=== PATIENT | male | born 1955 | race Caucasian/White ===

== ENCOUNTER 2019-03-07 10:02 | Emergency (ER) | payer OTHER, BC ==
[2019-03-07] MEDS: KETOROLAC 30 MG INJ IM (12:41)
== END 2019-03-07 13:39 | disposition home or self-care (01) ==
LOC: FTE 10:02
DX: R51 Headache (principal); E11.9 Type 2 diabetes mellitus without complications; Z79.84 Long term (current) use of oral hypoglycemic drugs
CPT/HCPCS: 96372; 99284-25

== ENCOUNTER 2019-04-04 08:35 | Day surgery (SDC) | payer OTHER ==
[2019-04-04] MEDS ORDERED: PROPOFOL 40 ML (10:38)
[2019-04-04] MEDS ORDERED: LIDOCAINE 100 MG SYRINGE (10:38)
== END 2019-04-04 13:58 | disposition home or self-care (01) ==
LOC: GIL 08:35
DX: Z12.11 Encounter for screening for malignant neoplasm of colon (principal); K64.8 Other hemorrhoids; D12.8 Benign neoplasm of rectum; E11.9 Type 2 diabetes mellitus without complications; Z79.84 Long term (current) use of oral hypoglycemic drugs
CPT/HCPCS: 45380; 82962; 88305